=== PATIENT | female | born 2000 | race Asian ===

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

== ENCOUNTER 2024-02-02 07:14 | Emergency (ER) | payer MEDICAID, OTHER ==
[~2024-02-02] VITALS: Ht 157.5 cm; Wt 56.7 kg
[2024-02-02 07:20] VITALS: BP_SYST 118; PULSE 114; RESP 18; TEMP 98.3; O2SAT 98
[2024-02-02] MEDS: KETOROLAC TROMETHAMINE 60 MG/2 ML VIAL IM ONE (07:36)
[2024-02-02] MEDS: ACETAMINOPHEN 500 MG TABLET PO ONE (08:05)
[2024-02-02 08:11] LABS: COVID19 ANTIGEN SOFIA FIA NEGATIVE (NEGATIVE)
[2024-02-02 08:16] LABS: INFLUENZA TYPE A Negative (NEGATIVE); INFLUENZA TYPE B NEGATIVE (NEGATIVE)
[2024-02-02 08:49] VITALS: BP_SYST 116; PULSE 79; RESP 18; TEMP 98.3; O2SAT 98
== END 2024-02-02 08:48 | disposition home or self-care (01) ==
LOC: SED 07:14
DX: J06.9 Acute upper respiratory infection, unspecified (principal); R07.9 Chest pain, unspecified; R05.9 Cough, unspecified; R06.02 Shortness of breath; Z79.899 Other long term (current) drug therapy; Z20.822 Contact with and (suspected) exposure to COVID-19
CPT/HCPCS: 99285; 71045; 87426; 36415; 93005; 96372; 87804 ×2; J1885